=== PATIENT | male | born 2000 | race Caucasian/White ===

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

== ENCOUNTER 2018-09-13 19:45 | Emergency (ER) | payer BC ==
[~2018-09-13] VITALS: Ht 185.4 cm; Wt 117.9 kg
[~2018-09-13 19:45] MED LIST changes: +ANAPROX DS550 MG PO
[2018-09-13] MEDS ORDERED: ZITHROMAX250 MG PO (21:07)
== END 2018-09-13 21:17 | disposition left against medical advice (07) ==
LOC: ED 19:45
DX: R05 Cough (principal)

== ENCOUNTER 2019-04-21 17:54 | Emergency (ER) | payer BC ==
[~2019-04-21] VITALS: Ht 182.8 cm; Wt 117.9 kg
== END 2019-04-21 18:38 | disposition home or self-care (01) ==
LOC: ED 17:54
DX: L55.1 Sunburn of second degree (principal); L55.0 Sunburn of first degree

== ENCOUNTER 2019-07-28 09:42 | Emergency (ER) | payer BC ==
[~2019-07-28] VITALS: Ht 182.8 cm; Wt 113.4 kg
[2019-07-28] MEDS ORDERED: AMOXICILLIN500 M2 PO (10:11)
[2019-07-28] MEDS ORDERED: IBUPROFEN600 MG PO (10:11)
== END 2019-07-28 10:15 | disposition home or self-care (01) ==
LOC: ED 09:42
DX: K08.89 Other specified disorders of teeth and supporting structures (principal); Z79.899 Other long term (current) drug therapy

== ENCOUNTER 2019-09-02 11:54 | Emergency (ER) | payer BC ==
[~2019-09-02] VITALS: Ht 182.8 cm; Wt 113.4 kg
[~2019-09-02 11:54] MED LIST changes: +AMOXICILLIN500 M2 PO; +IBUPROFEN600 MG PO
[2019-09-02] MEDS ORDERED: AMOXICILLIN500 M2 PO (12:10)
== END 2019-09-02 12:20 | disposition home or self-care (01) ==
LOC: ED 11:54
DX: K08.89 Other specified disorders of teeth and supporting structures (principal); Z79.2 Long term (current) use of antibiotics; Z79.899 Other long term (current) drug therapy

== ENCOUNTER → 2020-09-23 | Outpatient (CLI) | payer BC | END | disposition home or self-care (01) | LOC: COVID19 15:33 | PROVIDERS: ATTEND Internal Medicine | DX: Z20.828 Contact with and (suspected) exposure to other viral communicable diseases (principal) ==